=== PATIENT | female | born 1975 | race Caucasian/White ===

== ENCOUNTER 2020-02-08 11:44 | Inpatient (IN) | payer OTHER ==
[~2020-02-08] VITALS: Ht 160 cm; Wt 108.9 kg
[2020-02-08 15:58] LABS: CHLORIDE 105 mEq/L (98-107)
[2020-02-08] MEDS ORDERED: HYDRALAZINE 20MG/ML VIAL IV ONE (16:00)
[2020-02-08] MEDS ORDERED: DEXT 5%/0.45% NACL KCL 10MEQ/L 1,000 ML IV ONE (16:00)
[2020-02-08 16:02] LABS: BASOPHILS % 0.4 % (0.0-2.0); EOSINOPHILS % 0.8 % (0.0-5.0); HEMOGLOBIN. 10.1 g/dL (12.0-16.0); LYMPHOCYTES % 17.1 % (20.0-50.0); MEAN CORPUSCULAR HEMOGLOBIN 27.6 pg (28.0-32.0); MEAN CORPUSCULAR VOLUME 84.7 fL (81.0-99.0); MEAN PLATELET VOLUME 9.6 fl (7.4-10.4); NEUTROPHILS % 75.7 % (40.0-76.0); PLATELET 257 x1000/uL (130-400); RED BLOOD CELL COUNT 3.66 mill/uL (4.2-5.4); RED CELL DISTRIBUTION WIDTH 19.1 % (11.6-14.6)
[2020-02-08] MEDS ORDERED: LABETALOL 5MG/ML SYR 20 MG/4 ML SYRINGE IV ONE (19:30)
[2020-02-09] MEDS ORDERED: LIDOCAINE HCL 1% 20ML VIAL (Pyxis) INJ ONE (10:59)
[2020-02-09] MEDS ORDERED: SODIUM BICARBONATE 4% (2.4MEQ) 5ML VIAL IV ONE (10:59)
[2020-02-09] MEDS ORDERED: IOHEXOL-300 50 ML BOTTLE IV ONE (11:00)
[2020-02-09] MEDS ORDERED: LIDOCAINE HCL 2% JELLY 5ML ONE (11:43)
[2020-02-09 17:30] VITALS: BP 146/88
[2020-02-09] MEDS ORDERED: ACETAMINOPHEN 650MG SUPP PR PRN (18:00)
[2020-02-09] MEDS ORDERED: ONDANSETRON HCL 4MG/2ML INJ IV PRN (18:00)
[2020-02-09] MEDS ORDERED: CLONIDINE 0.1MG TABLET PO PRN (18:00)
[2020-02-09] MEDS ORDERED: ENOXAPARIN 30MG/0.3ML SYR SUBCUT SCH (19:00)
[2020-02-09 20:00] VITALS: BP 126/81
[2020-02-10] VITALS: BP 115/73
[2020-02-10] MEDS ORDERED: QUET25TA34 GT (03:04)
[2020-02-10] MEDS ORDERED: MULT-1195 GT (03:04)
[2020-02-10] MEDS ORDERED: ATEN-42 GT (03:04)
[2020-02-10] MEDS ORDERED: BACL-141 GT (03:04)
[2020-02-10] MEDS ORDERED: ASCO-339 GT (03:04)
[2020-02-10] MEDS ORDERED: ARGI1POW13 TP (03:04)
[2020-02-10] MEDS ORDERED: ESCI20TA47 GT (03:04)
[2020-02-10] MEDS ORDERED: XAR15 GT (03:04)
[2020-02-10 04:00] VITALS: BP 109/71
[2020-02-10 05:35] LABS: BASOPHILS % 0.4 % (0.0-2.0); EOSINOPHILS % 0.1 % (0.0-5.0); HEMATOCRIT. 31.7 % (36.0-48.0); HEMOGLOBIN. 10.2 g/dL (12.0-16.0); LYMPHOCYTES % 12.3 % (20.0-50.0); MEAN CORPUSCULAR HEMOGLOBIN 27.5 pg (28.0-32.0); MEAN CORPUSCULAR VOLUME 85.3 fL (81.0-99.0); MEAN PLATELET VOLUME 9.4 fl (7.4-10.4); MONOCYTES % 7.8 % (2.0-8.0); NEUTROPHILS % 79.4 % (40.0-76.0); PLATELET 265 x1000/uL (130-400); RED BLOOD CELL COUNT 3.72 mill/uL (4.2-5.4); RED CELL DISTRIBUTION WIDTH 19.4 % (11.6-14.6)
[2020-02-10 05:40] LABS: CHLORIDE 110 mEq/L (98-107)
[2020-02-10] MEDS ORDERED: ACETAMINOPHEN 650MG SUPP PR PRN (06:00)
[2020-02-10 08:00] VITALS: BP 121/80
[2020-02-10 12:00] VITALS: BP 128/78
[2020-02-10] MEDS ORDERED: KCL 20MEQ/100ML PREMIX 100 ML IV SCH (15:00)
[2020-02-10 16:00] VITALS: BP 129/83
[2020-02-10] MEDS: BACLOFEN 10MG TABLET GT SCH (17:00)
[2020-02-10 20:00] VITALS: BP 114/80
[2020-02-10] MEDS: QUETIAPINE FUMARATE 25MG TABLET GT SCH ×2 (21:00→22:18)
[2020-02-10] MEDS: ATENOLOL 25MG TABLET GT SCH ×2 (21:00→22:18)
[2020-02-10] MEDS: PANTOPRAZOLE SODIUM 40 MG/VIAL IV SCH (22:15)
[2020-02-11] VITALS: BP 120/71
[2020-02-11 04:00] VITALS: BP 111/71
[2020-02-11 06:50] LABS: BASOPHILS % 0.7 % (0.0-2.0); EOSINOPHILS % 0.5 % (0.0-5.0); HEMATOCRIT. 32.3 % (36.0-48.0); HEMOGLOBIN. 10.9 g/dL (12.0-16.0); LYMPHOCYTES % 19.4 % (20.0-50.0); MEAN CORPUSCULAR HEMOGLOBIN 28.8 pg (28.0-32.0); MEAN CORPUSCULAR VOLUME 85.5 fL (81.0-99.0); MEAN PLATELET VOLUME 9.5 fl (7.4-10.4); MONOCYTES % 7.7 % (2.0-8.0); NEUTROPHILS % 71.7 % (40.0-76.0); PLATELET 246 x1000/uL (130-400); RED BLOOD CELL COUNT 3.77 mill/uL (4.2-5.4); RED CELL DISTRIBUTION WIDTH 19.4 % (11.6-14.6)
[2020-02-11 06:54] LABS: CHLORIDE 112 mEq/L (98-107)
[2020-02-11 07:09] LABS: INR 1.2; PARTIAL THROMBOPLASTIN TIME 31.3 sec (23.4-31.0); PROTHROMBIN TIME 12.5 sec (9.6-11.0)
[2020-02-11 08:00] VITALS: BP 124/82
[2020-02-11] MEDS: ATENOLOL 25MG TABLET GT SCH ×2 (09:00→21:00)
[2020-02-11] MEDS ORDERED: RIVAROXABAN 15 MG TABLET GT SCH (09:00)
[2020-02-11] MEDS: BACLOFEN 10MG TABLET GT SCH ×2 (09:00→16:43)
[2020-02-11] MEDS: PANTOPRAZOLE SODIUM 40 MG/VIAL IV SCH ×2 (09:33→21:01)
[2020-02-11 12:00] VITALS: BP 116/76
[2020-02-11] MEDS ORDERED: ENOXAPARIN 120MG/0.8ML SYR SUBCUT SCH (15:00)
[2020-02-11 16:00] VITALS: BP 108/62
[2020-02-11] MEDS: DEXT 5%/0.45% NACL 1000ML 1,000 ML IV SCH ×2 (16:01→21:01)
[2020-02-11 20:00] VITALS: BP 123/78
[2020-02-11] MEDS: QUETIAPINE FUMARATE 25MG TABLET GT SCH (21:00)
[2020-02-11] MEDS: ENOXAPARIN 120MG/0.8ML SYR SUBCUT SCH (23:47)
[2020-02-12] VITALS: BP 122/74
[2020-02-12 04:00] VITALS: BP 113/71
[2020-02-12 08:00] VITALS: BP 115/74
[2020-02-12] MEDS: ATENOLOL 25MG TABLET GT SCH ×2 (09:00→20:48)
[2020-02-12] MEDS: BACLOFEN 10MG TABLET GT SCH ×2 (09:00→18:46)
[2020-02-12] MEDS: ENOXAPARIN 120MG/0.8ML SYR SUBCUT SCH ×2 (09:18→20:43)
[2020-02-12] MEDS: PANTOPRAZOLE SODIUM 40 MG/VIAL IV SCH ×2 (09:18→20:42)
[2020-02-12 12:00] VITALS: BP 117/72
[2020-02-12] MEDS ORDERED: POTASSIUM CHLORIDE INJ 40 MEQ in DEXT 5% WATER 500 ML IV ONE (12:00)
[2020-02-12] MEDS ORDERED: CEFAZOLIN 1000MG PREMIX 50 ML IV SCH (12:00)
[2020-02-12] MEDS: DEXT 5%/0.45% NACL 1000ML 1,000 ML IV SCH (12:18)
[2020-02-12] MEDS ORDERED: MIDAZOLAM HCL 5 MG/5 ML VIAL ONE (15:27)
[2020-02-12] MEDS ORDERED: FENTANYL CITRATE/PF 50MCG/ML 2ML VIAL ONE (15:28)
[2020-02-12 20:00] VITALS: BP 132/79
[2020-02-12] MEDS: QUETIAPINE FUMARATE 25MG TABLET GT SCH (20:44)
[2020-02-13] VITALS: BP 119/72
[2020-02-13] MEDS: DEXT 5%/0.45% NACL 1000ML 1,000 ML IV SCH (05:21)
[2020-02-13] MEDS: POLYVINYL ALCOHOL OPHTH DROPS 15ML BOTHEYE SCH ×5 (05:58→18:03)
[2020-02-13 06:22] LABS: BASOPHILS % 0.7 % (0.0-2.0); EOSINOPHILS % 0.9 % (0.0-5.0); HEMATOCRIT. 27.8 % (36.0-48.0); HEMOGLOBIN. 9.2 g/dL (12.0-16.0); LYMPHOCYTES % 23.5 % (20.0-50.0); MEAN CORPUSCULAR VOLUME 84.9 fL (81.0-99.0); MEAN PLATELET VOLUME 9.4 fl (7.4-10.4); MONOCYTES % 7.3 % (2.0-8.0); NEUTROPHILS % 67.6 % (40.0-76.0); PLATELET 197 x1000/uL (130-400); RED BLOOD CELL COUNT 3.28 mill/uL (4.2-5.4); RED CELL DISTRIBUTION WIDTH 18.7 % (11.6-14.6)
[2020-02-13 07:49] LABS: CHLORIDE 112 mEq/L (98-107)
[2020-02-13 08:00] VITALS: BP 136/86
[2020-02-13] MEDS: PANTOPRAZOLE SODIUM 40 MG/VIAL IV SCH ×2 (09:40→21:34)
[2020-02-13] MEDS: BACLOFEN 10MG TABLET GT SCH ×2 (09:41→18:03)
[2020-02-13] MEDS: ENOXAPARIN 120MG/0.8ML SYR SUBCUT SCH ×2 (09:41→21:35)
[2020-02-13] MEDS: ATENOLOL 25MG TABLET GT SCH ×2 (09:41→21:34)
[2020-02-13] MEDS: ASCORBIC ACID 500 MG TABLET PO SCH (09:41)
[2020-02-13] MEDS: ZINC SULFATE 220 MG ( 50 ) CAPSULE PO SCH (09:41)
[2020-02-13] MEDS ORDERED: POTASSIUM CHLORIDE 20MEQ TABLET SR PO NR (11:45)
[2020-02-13 12:00] VITALS: BP 120/74
[2020-02-13] MEDS: ACETAMINOPHEN 650MG/20.3ML UDC GT PRN (13:21)
[2020-02-13 16:00] VITALS: BP 134/70
[2020-02-13 20:00] VITALS: BP 130/74
[2020-02-13] MEDS: QUETIAPINE FUMARATE 25MG TABLET GT SCH (21:34)
[2020-02-14] VITALS: BP 110/70
[2020-02-14] MEDS: POLYVINYL ALCOHOL OPHTH DROPS 15ML BOTHEYE SCH ×5 (00:19→22:19)
[2020-02-14 04:00] VITALS: BP 129/81
[2020-02-14 08:00] VITALS: BP 109/67
[2020-02-14] MEDS: SODIUM HYPOCHLORITE 0.125% 473ML SOLUTION TOP SCH (09:00)
[2020-02-14] MEDS: ATENOLOL 25MG TABLET GT SCH ×2 (09:00→22:19)
[2020-02-14] MEDS: FAMOTIDINE 20MG/2ML VIAL IV SCH ×2 (09:17→22:15)
[2020-02-14] MEDS: ASCORBIC ACID 500 MG TABLET PO SCH (09:18)
[2020-02-14] MEDS: ZINC SULFATE 220 MG ( 50 ) CAPSULE PO SCH (09:18)
[2020-02-14] MEDS: BACLOFEN 10MG TABLET GT SCH ×2 (09:20→18:00)
[2020-02-14] MEDS: ENOXAPARIN 120MG/0.8ML SYR SUBCUT SCH ×2 (09:21→22:18)
[2020-02-14 12:00] VITALS: BP 136/65
[2020-02-14 16:00] VITALS: BP 121/65
[2020-02-14] MEDS: ACETAMINOPHEN 650MG/20.3ML UDC GT PRN (18:00)
[2020-02-14 20:00] VITALS: BP 112/70
[2020-02-14] MEDS: QUETIAPINE FUMARATE 25MG TABLET GT SCH (22:18)
[2020-02-15] VITALS: BP 114/64
[2020-02-15] MEDS: DEXT 5%/0.45% NACL 1000ML 1,000 ML IV SCH ×2 (03:46→09:46)
[2020-02-15 04:00] VITALS: BP 134/55
[2020-02-15] MEDS: POLYVINYL ALCOHOL OPHTH DROPS 15ML BOTHEYE SCH ×3 (07:11→17:22)
[2020-02-15 08:00] VITALS: BP 104/46
[2020-02-15] MEDS: ATENOLOL 25MG TABLET GT SCH ×2 (09:00→22:26)
[2020-02-15] MEDS: ENOXAPARIN 120MG/0.8ML SYR SUBCUT SCH ×2 (09:33→22:27)
[2020-02-15] MEDS: FAMOTIDINE 20MG/2ML VIAL IV SCH ×2 (09:33→22:27)
[2020-02-15] MEDS: ASCORBIC ACID 500 MG TABLET PO SCH (09:34)
[2020-02-15] MEDS: BACLOFEN 10MG TABLET GT SCH ×2 (09:34→17:22)
[2020-02-15] MEDS: ZINC SULFATE 220 MG ( 50 ) CAPSULE PO SCH (09:34)
[2020-02-15] MEDS: SODIUM HYPOCHLORITE 0.125% 473ML SOLUTION TOP SCH (09:35)
[2020-02-15 12:00] VITALS: BP 96/49
[2020-02-15 16:00] VITALS: BP 127/65
[2020-02-15 20:00] VITALS: BP 117/67
[2020-02-15 22:08] LABS: CLARITY URINE TURBID (CLEAR); COLOR URINE YELLOW (YELLOW); KETONES URINE NEGATIVE (NEGATIVE); LEUKOCYTE ESTERASE URINE 3+ (NEGATIVE); NITRITE URINE POSITIVE (NEGATIVE); OCCULT BLOOD URINE NEGATIVE (NEGATIVE); PH URINE 5.5 (4.5-8.0); PROTEIN URINE 1+ (NEGATIVE); SPECIFIC GRAVITY URINE 1.021 (1.005-1.030)
[2020-02-15] MEDS: QUETIAPINE FUMARATE 25MG TABLET GT SCH (22:26)
[2020-02-16] VITALS: BP 90/49
[2020-02-16] MEDS: POLYVINYL ALCOHOL OPHTH DROPS 15ML BOTHEYE SCH ×4 (00:12→17:54)
[2020-02-16] MEDS: DEXT 5%/0.45% NACL 1000ML 1,000 ML IV SCH ×2 (00:18→17:54)
[2020-02-16 04:00] VITALS: BP 110/65
[2020-02-16 08:00] VITALS: BP 132/78
[2020-02-16] MEDS: ENOXAPARIN 120MG/0.8ML SYR SUBCUT SCH ×2 (10:05→20:53)
[2020-02-16] MEDS: FAMOTIDINE 20MG/2ML VIAL IV SCH ×2 (10:06→20:50)
[2020-02-16] MEDS: NITROFURANTOIN 100MG M/M CAPSULE PO SCH ×2 (10:06→20:50)
[2020-02-16] MEDS: BACLOFEN 10MG TABLET GT SCH ×2 (10:06→17:54)
[2020-02-16] MEDS: ASCORBIC ACID 500 MG TABLET PO SCH (10:06)
[2020-02-16] MEDS: ZINC SULFATE 220 MG ( 50 ) CAPSULE PO SCH (10:06)
[2020-02-16] MEDS: ATENOLOL 25MG TABLET GT SCH ×2 (10:06→20:52)
[2020-02-16] MEDS: SODIUM HYPOCHLORITE 0.125% 473ML SOLUTION TOP SCH (10:13)
[2020-02-16 12:00] VITALS: BP 129/76
[2020-02-16 12:25] LABS: CHLORIDE 111 mEq/L (98-107)
[2020-02-16 16:00] VITALS: BP 139/85
[2020-02-16 20:00] VITALS: BP 127/75
[2020-02-16] MEDS: QUETIAPINE FUMARATE 25MG TABLET GT SCH (20:53)
[2020-02-17] VITALS: BP 124/73
[2020-02-17] MEDS: POLYVINYL ALCOHOL OPHTH DROPS 15ML BOTHEYE SCH ×4 (00:21→17:38)
[2020-02-17 04:00] VITALS: BP 120/75
[2020-02-17 08:00] VITALS: BP 126/74
[2020-02-17] MEDS: FAMOTIDINE 20MG/2ML VIAL IV SCH ×2 (10:00→20:51)
[2020-02-17] MEDS: ACETAMINOPHEN 650MG/20.3ML UDC GT PRN ×2 (10:00→14:19)
[2020-02-17] MEDS: ASCORBIC ACID 500 MG TABLET PO SCH (10:01)
[2020-02-17] MEDS: ATENOLOL 25MG TABLET GT SCH ×2 (10:01→20:51)
[2020-02-17] MEDS: ZINC SULFATE 220 MG ( 50 ) CAPSULE PO SCH (10:01)
[2020-02-17] MEDS: BACLOFEN 10MG TABLET GT SCH ×2 (10:01→17:38)
[2020-02-17] MEDS: NITROFURANTOIN 100MG M/M CAPSULE PO SCH (10:01)
[2020-02-17] MEDS: DEXT 5%/0.45% NACL 1000ML 1,000 ML IV SCH (10:02)
[2020-02-17] MEDS: ENOXAPARIN 120MG/0.8ML SYR SUBCUT SCH (10:02)
[2020-02-17] MEDS: SODIUM HYPOCHLORITE 0.125% 473ML SOLUTION TOP SCH (10:03)
[2020-02-17 12:00] VITALS: BP 106/68
[2020-02-17] MEDS ORDERED: PIPERACILLIN/TAZOBACTAM 2.25 G in DEXTROSE 5% WATER 50 ML IV SCH (14:00)
[2020-02-17] MEDS: PIPERACILLIN/TAZOBACTAM 3.375 G in DEXT 5% WATER 100 ML IV SCH ×2 (14:18→20:51)
[2020-02-17 16:00] VITALS: BP 124/64
[2020-02-17 19:48] LABS: BASOPHILS % 0.4 % (0.0-2.0); EOSINOPHILS % 1.3 % (0.0-5.0); LYMPHOCYTES % 25.7 % (20.0-50.0); MEAN CORPUSCULAR HEMOGLOBIN 27.6 pg (28.0-32.0); MEAN CORPUSCULAR VOLUME 83.4 fL (81.0-99.0); MEAN PLATELET VOLUME 9.2 fl (7.4-10.4); MONOCYTES % 9.8 % (2.0-8.0); NEUTROPHILS % 62.8 % (40.0-76.0); PLATELET 133 x1000/uL (130-400); RED BLOOD CELL COUNT 2.51 mill/uL (4.2-5.4); RED CELL DISTRIBUTION WIDTH 18.2 % (11.6-14.6)
[2020-02-17 20:00] VITALS: BP 134/76
[2020-02-17 20:25] LABS: HEMOGLOBIN. 6.9 g/dL (12.0-16.0)
[2020-02-17] MEDS: QUETIAPINE FUMARATE 25MG TABLET GT SCH (20:51)
[2020-02-17] MEDS: ENOXAPARIN 30MG/0.3ML SYR SUBCUT SCH (20:51)
[2020-02-18] VITALS: BP 112/86
[2020-02-18] MEDS: ACETAMINOPHEN 650MG/20.3ML UDC GT PRN (00:15)
[2020-02-18] MEDS: POLYVINYL ALCOHOL OPHTH DROPS 15ML BOTHEYE SCH ×5 (00:15→23:29)
[2020-02-18 04:00] VITALS: BP 111/68
[2020-02-18] MEDS: PIPERACILLIN/TAZOBACTAM 3.375 G in DEXT 5% WATER 100 ML IV SCH ×2 (05:18→12:29)
[2020-02-18] MEDS: BACLOFEN 10MG TABLET GT SCH ×2 (09:32→16:14)
[2020-02-18] MEDS: FAMOTIDINE 20MG/2ML VIAL IV SCH ×2 (09:33→21:20)
[2020-02-18] MEDS: ZINC SULFATE 220 MG ( 50 ) CAPSULE PO SCH (09:33)
[2020-02-18] MEDS: ASCORBIC ACID 500 MG TABLET PO SCH (09:33)
[2020-02-18] MEDS: ENOXAPARIN 30MG/0.3ML SYR SUBCUT SCH ×2 (09:33→21:41)
[2020-02-18] MEDS: ATENOLOL 25MG TABLET GT SCH ×2 (09:33→21:21)
[2020-02-18] MEDS: SODIUM HYPOCHLORITE 0.125% 473ML SOLUTION TOP SCH (09:33)
[2020-02-18] MEDS ORDERED: LEVOFLOXACIN 500MG PREMIX 100 ML IV SCH (13:00)
[2020-02-18] MEDS ORDERED: LEVOFLOXACIN 750MG PREMIX 150 ML IV SCH (14:30)
[2020-02-18 16:58] VITALS: BP 108/63
[2020-02-18 17:13] VITALS: BP 111/64
[2020-02-18 20:00] VITALS: BP 125/57
[2020-02-18] MEDS: QUETIAPINE FUMARATE 25MG TABLET GT SCH (21:22)
[2020-02-18 21:37] LABS: HEMATOCRIT 26.6 % (36.0-48.0); HEMOGLOBIN 8.8 g/dL (12.0-16.0)
[2020-02-19] VITALS: BP 131/72
[2020-02-19 04:00] VITALS: BP 130/71
[2020-02-19] MEDS: ACETAMINOPHEN 650MG/20.3ML UDC GT PRN (04:18)
[2020-02-19] MEDS: POLYVINYL ALCOHOL OPHTH DROPS 15ML BOTHEYE SCH ×3 (06:32→18:07)
[2020-02-19 08:00] VITALS: BP 132/84
[2020-02-19] MEDS: ZINC SULFATE 220 MG ( 50 ) CAPSULE PO SCH (10:02)
[2020-02-19] MEDS: FAMOTIDINE 20MG/2ML VIAL IV SCH ×2 (10:02→20:43)
[2020-02-19] MEDS: ASCORBIC ACID 500 MG TABLET PO SCH (10:02)
[2020-02-19] MEDS: ENOXAPARIN 30MG/0.3ML SYR SUBCUT SCH ×2 (10:03→21:04)
[2020-02-19] MEDS: BACLOFEN 10MG TABLET GT SCH ×2 (10:06→18:07)
[2020-02-19] MEDS: ATENOLOL 25MG TABLET GT SCH ×2 (10:07→20:43)
[2020-02-19] MEDS: SODIUM HYPOCHLORITE 0.125% 473ML SOLUTION TOP SCH (10:12)
[2020-02-19 12:00] VITALS: BP 133/77
[2020-02-19] MEDS ORDERED: GENTAMICIN 120MG PREMIX 100 ML IV SCH (14:00)
[2020-02-19 16:00] VITALS: BP 116/70
[2020-02-19 16:36] LABS: BASOPHILS % 0.5 % (0.0-2.0); EOSINOPHILS % 1.8 % (0.0-5.0); HEMATOCRIT. 25.2 % (36.0-48.0); HEMOGLOBIN. 8.1 g/dL (12.0-16.0); LYMPHOCYTES % 23.2 % (20.0-50.0); MEAN CORPUSCULAR HEMOGLOBIN 27.2 pg (28.0-32.0); MEAN CORPUSCULAR VOLUME 84.9 fL (81.0-99.0); MONOCYTES % 7.5 % (2.0-8.0); PLATELET 170 x1000/uL (130-400); RED BLOOD CELL COUNT 2.97 mill/uL (4.2-5.4); RED CELL DISTRIBUTION WIDTH 17.6 % (11.6-14.6)
[2020-02-19 16:53] LABS: CHLORIDE 109 mEq/L (98-107)
[2020-02-19 20:00] VITALS: BP 125/68
[2020-02-19] MEDS: QUETIAPINE FUMARATE 25MG TABLET GT SCH (20:44)
[2020-02-20] VITALS: BP 113/66
[2020-02-20] MEDS: POLYVINYL ALCOHOL OPHTH DROPS 15ML BOTHEYE SCH ×4 (00:04→17:29)
[2020-02-20] MEDS: GENTAMICIN 80MG PREMIX 100 ML IV SCH ×2 (01:53→14:38)
[2020-02-20 04:00] VITALS: BP 120/69
[2020-02-20 07:50] LABS: BASOPHILS % 0.5 % (0.0-2.0); EOSINOPHILS % 1.7 % (0.0-5.0); HEMATOCRIT. 26.6 % (36.0-48.0); HEMOGLOBIN. 8.7 g/dL (12.0-16.0); LYMPHOCYTES % 19.8 % (20.0-50.0); MEAN CORPUSCULAR HEMOGLOBIN 27.5 pg (28.0-32.0); MEAN CORPUSCULAR VOLUME 84.2 fL (81.0-99.0); MEAN PLATELET VOLUME 9.7 fl (7.4-10.4); PLATELET 176 x1000/uL (130-400); RED BLOOD CELL COUNT 3.16 mill/uL (4.2-5.4); RED CELL DISTRIBUTION WIDTH 17.2 % (11.6-14.6)
[2020-02-20 08:00] VITALS: BP 110/69
[2020-02-20 08:03] LABS: CHLORIDE 106 mEq/L (98-107)
[2020-02-20] MEDS: FAMOTIDINE 20MG/2ML VIAL IV SCH ×2 (09:37→22:08)
[2020-02-20] MEDS: ASCORBIC ACID 500 MG TABLET PO SCH (09:37)
[2020-02-20] MEDS: BACLOFEN 10MG TABLET GT SCH ×2 (09:37→17:29)
[2020-02-20] MEDS: ZINC SULFATE 220 MG ( 50 ) CAPSULE PO SCH (09:37)
[2020-02-20] MEDS: ATENOLOL 25MG TABLET GT SCH ×2 (09:40→21:00)
[2020-02-20] MEDS: ENOXAPARIN 30MG/0.3ML SYR SUBCUT SCH ×2 (09:40→22:09)
[2020-02-20 12:00] VITALS: BP 116/74
[2020-02-20] MEDS: SODIUM HYPOCHLORITE 0.125% 473ML SOLUTION TOP SCH (12:27)
[2020-02-20 14:34] LABS: TOTAL IRON BINDING CAPACITY 173 ug/dL (250-450)
[2020-02-20 14:52] LABS: FOLIC ACID (FOLATE) SERUM 7.5 ng/mL (>5.38)
[2020-02-20 16:00] VITALS: BP 101/62
[2020-02-20 20:00] VITALS: BP 109/73
[2020-02-20] MEDS: QUETIAPINE FUMARATE 25MG TABLET GT SCH (22:08)
[2020-02-20] MEDS: ACETAMINOPHEN 650MG/20.3ML UDC GT PRN (22:21)
[2020-02-21] VITALS: BP 119/64
[2020-02-21] MEDS: POLYVINYL ALCOHOL OPHTH DROPS 15ML BOTHEYE SCH ×4 (00:03→18:01)
[2020-02-21] MEDS: GENTAMICIN 80MG PREMIX 100 ML IV SCH (01:00)
[2020-02-21 04:00] VITALS: BP 131/72
[2020-02-21 07:01] LABS: HEMATOCRIT. 27.8 % (36.0-48.0); MEAN CORPUSCULAR HEMOGLOBIN 27.6 pg (28.0-32.0); MEAN CORPUSCULAR VOLUME 85.2 fL (81.0-99.0); MEAN PLATELET VOLUME 9.5 fl (7.4-10.4); PLATELET 192 x1000/uL (130-400); RED BLOOD CELL COUNT 3.26 mill/uL (4.2-5.4); RED CELL DISTRIBUTION WIDTH 17.9 % (11.6-14.6)
[2020-02-21 07:15] LABS: CHLORIDE 107 mEq/L (98-107)
[2020-02-21 07:24] LABS: GENTAMICIN RANDOM 4.1 ug/mL
[2020-02-21 08:00] VITALS: BP 113/78
[2020-02-21] MEDS: ACETAMINOPHEN 650MG/20.3ML UDC GT PRN ×2 (09:47→21:51)
[2020-02-21] MEDS: ENOXAPARIN 30MG/0.3ML SYR SUBCUT SCH ×2 (09:47→21:53)
[2020-02-21] MEDS: ASCORBIC ACID 500 MG TABLET PO SCH (09:47)
[2020-02-21] MEDS: BACLOFEN 10MG TABLET GT SCH ×2 (09:47→17:49)
[2020-02-21] MEDS: ZINC SULFATE 220 MG ( 50 ) CAPSULE PO SCH (09:47)
[2020-02-21] MEDS: FAMOTIDINE 20MG/2ML VIAL IV SCH ×2 (09:47→21:51)
[2020-02-21] MEDS: SODIUM HYPOCHLORITE 0.125% 473ML SOLUTION TOP SCH (09:48)
[2020-02-21] MEDS: ATENOLOL 25MG TABLET GT SCH ×2 (09:48→21:51)
[2020-02-21 12:00] VITALS: BP 121/66
[2020-02-21 16:00] VITALS: BP 129/70
[2020-02-21] MEDS ORDERED: GENTAMICIN 100MG PREMIX 50 ML IV SCH (18:00)
[2020-02-21 20:00] VITALS: BP 137/77
[2020-02-21] MEDS: QUETIAPINE FUMARATE 25MG TABLET GT SCH (21:50)
[2020-02-21 22:46] LABS: PLATELET ESTIMATE NORMAL
[2020-02-22] VITALS: BP 121/78
[2020-02-22] MEDS: POLYVINYL ALCOHOL OPHTH DROPS 15ML BOTHEYE SCH ×4 (00:30→17:23)
[2020-02-22 04:00] VITALS: BP 119/75
[2020-02-22 08:00] VITALS: BP 126/77
[2020-02-22] MEDS: ZINC SULFATE 220 MG ( 50 ) CAPSULE PO SCH (08:54)
[2020-02-22] MEDS: ATENOLOL 25MG TABLET GT SCH ×2 (08:54→21:00)
[2020-02-22] MEDS: ENOXAPARIN 30MG/0.3ML SYR SUBCUT SCH ×2 (08:54→21:45)
[2020-02-22] MEDS: BACLOFEN 10MG TABLET GT SCH ×2 (08:54→17:24)
[2020-02-22] MEDS: ASCORBIC ACID 500 MG TABLET PO SCH (08:54)
[2020-02-22] MEDS: FAMOTIDINE 20MG/2ML VIAL IV SCH ×2 (08:54→21:44)
[2020-02-22] MEDS: SODIUM HYPOCHLORITE 0.125% 473ML SOLUTION TOP SCH (08:55)
[2020-02-22 12:00] VITALS: BP 123/73
[2020-02-22] MEDS: GENTAMICIN 100MG PREMIX 50 ML IV SCH (13:59)
[2020-02-22 16:00] VITALS: BP 103/67
[2020-02-22 20:00] VITALS: BP 106/64
[2020-02-22] MEDS: QUETIAPINE FUMARATE 25MG TABLET GT SCH (21:44)
[2020-02-23] VITALS: BP 104/61
[2020-02-23] MEDS: POLYVINYL ALCOHOL OPHTH DROPS 15ML BOTHEYE SCH ×4 (00:21→17:21)
[2020-02-23 04:00] VITALS: BP 117/69
[2020-02-23 08:00] VITALS: BP 116/73
[2020-02-23] MEDS: ZINC SULFATE 220 MG ( 50 ) CAPSULE PO SCH (08:57)
[2020-02-23] MEDS: FAMOTIDINE 20MG/2ML VIAL IV SCH ×2 (08:58→20:50)
[2020-02-23] MEDS: ASCORBIC ACID 500 MG TABLET PO SCH (08:58)
[2020-02-23] MEDS: GENTAMICIN 100MG PREMIX 50 ML IV SCH (08:58)
[2020-02-23] MEDS: BACLOFEN 10MG TABLET GT SCH ×2 (08:58→17:21)
[2020-02-23] MEDS: ATENOLOL 25MG TABLET GT SCH ×2 (09:00→20:51)
[2020-02-23] MEDS: SODIUM HYPOCHLORITE 0.125% 473ML SOLUTION TOP SCH (09:02)
[2020-02-23] MEDS: ENOXAPARIN 30MG/0.3ML SYR SUBCUT SCH (09:03)
[2020-02-23 12:00] VITALS: BP 111/66
[2020-02-23 16:00] VITALS: BP 97/56
[2020-02-23 20:00] VITALS: BP 93/51
[2020-02-23] MEDS: ENOXAPARIN 40MG/0.4ML SYR SUBCUT SCH (20:50)
[2020-02-23] MEDS: ACETAMINOPHEN 650MG/20.3ML UDC GT PRN (20:50)
[2020-02-23] MEDS: QUETIAPINE FUMARATE 25MG TABLET GT SCH (20:56)
[2020-02-24] VITALS: BP 86/50
[2020-02-24] MEDS: POLYVINYL ALCOHOL OPHTH DROPS 15ML BOTHEYE SCH ×5 (00:16→23:03)
[2020-02-24] MEDS: GENTAMICIN 100MG PREMIX 50 ML IV SCH ×2 (02:08→22:38)
[2020-02-24 04:00] VITALS: BP 105/60
[2020-02-24 07:36] LABS: CHLORIDE 106 mEq/L (98-107)
[2020-02-24 07:47] LABS: GENTAMICIN RANDOM 4.1 ug/mL
[2020-02-24 08:00] VITALS: BP 126/74
[2020-02-24] MEDS: ATENOLOL 25MG TABLET GT SCH ×2 (09:00→21:00)
[2020-02-24] MEDS: BACLOFEN 10MG TABLET GT SCH ×2 (09:31→16:58)
[2020-02-24] MEDS: ZINC SULFATE 220 MG ( 50 ) CAPSULE PO SCH (09:31)
[2020-02-24] MEDS: FAMOTIDINE 20MG/2ML VIAL IV SCH ×2 (09:31→22:37)
[2020-02-24] MEDS: ASCORBIC ACID 500 MG TABLET PO SCH (09:31)
[2020-02-24] MEDS: SODIUM HYPOCHLORITE 0.125% 473ML SOLUTION TOP SCH (09:33)
[2020-02-24] MEDS: ENOXAPARIN 40MG/0.4ML SYR SUBCUT SCH ×2 (09:33→22:37)
[2020-02-24 12:00] VITALS: BP 116/76
[2020-02-24 16:00] VITALS: BP 120/66
[2020-02-24] MEDS: MIDODRINE HCL 2.5MG TABLET PO SCH (17:02)
[2020-02-24 20:00] VITALS: BP 106/67
[2020-02-24] MEDS: ACETAMINOPHEN 650MG/20.3ML UDC GT PRN (22:37)
[2020-02-24] MEDS: QUETIAPINE FUMARATE 25MG TABLET GT SCH (22:38)
[2020-02-25] VITALS: BP 122/76
[2020-02-25] MEDS: POLYVINYL ALCOHOL OPHTH DROPS 15ML BOTHEYE SCH ×3 (06:04→19:41)
[2020-02-25 08:00] VITALS: BP 135/75
[2020-02-25] MEDS: ATENOLOL 25MG TABLET GT SCH ×2 (10:08→21:40)
[2020-02-25] MEDS: MIDODRINE HCL 2.5MG TABLET PO SCH ×3 (10:08→19:41)
[2020-02-25] MEDS: ASCORBIC ACID 500 MG TABLET PO SCH (10:08)
[2020-02-25] MEDS: BACLOFEN 10MG TABLET GT SCH ×2 (10:08→19:41)
[2020-02-25] MEDS: ZINC SULFATE 220 MG ( 50 ) CAPSULE PO SCH (10:08)
[2020-02-25] MEDS: FAMOTIDINE 20MG/2ML VIAL IV SCH ×2 (10:09→21:40)
[2020-02-25] MEDS: SODIUM HYPOCHLORITE 0.125% 473ML SOLUTION TOP SCH (10:09)
[2020-02-25] MEDS: ENOXAPARIN 40MG/0.4ML SYR SUBCUT SCH ×2 (10:16→21:41)
[2020-02-25 20:00] VITALS: BP 141/83
[2020-02-25] MEDS: QUETIAPINE FUMARATE 25MG TABLET GT SCH (21:40)
[2020-02-26] MEDS: POLYVINYL ALCOHOL OPHTH DROPS 15ML BOTHEYE SCH ×5 (00:18→23:05)
[2020-02-26] MEDS ORDERED: CHOL500051 (04:50)
[2020-02-26 08:00] VITALS: BP 120/78
[2020-02-26] MEDS: ATENOLOL 25MG TABLET GT SCH ×2 (09:00→22:21)
[2020-02-26] MEDS: ASCORBIC ACID 500 MG TABLET PO SCH (10:39)
[2020-02-26] MEDS: ZINC SULFATE 220 MG ( 50 ) CAPSULE PO SCH (10:39)
[2020-02-26] MEDS: BACLOFEN 10MG TABLET GT SCH ×3 (10:39→19:44)
[2020-02-26] MEDS: MIDODRINE HCL 2.5MG TABLET PO SCH ×3 (10:40→19:43)
[2020-02-26] MEDS: ENOXAPARIN 40MG/0.4ML SYR SUBCUT SCH (10:41)
[2020-02-26] MEDS: SODIUM HYPOCHLORITE 0.125% 473ML SOLUTION TOP SCH (10:41)
[2020-02-26] MEDS: FAMOTIDINE 20MG/2ML VIAL IV SCH (10:42)
[2020-02-26 12:00] VITALS: BP 139/88
[2020-02-26] MEDS ORDERED: LOPERAMIDE 2MG/15ML UDC PO PRN (12:45)
[2020-02-26] MEDS: SODIUM CHLORIDE 0.9% 1,000 ML IV SCH (13:36)
[2020-02-26 16:00] VITALS: BP 110/71
[2020-02-26] MEDS: RIVAROXABAN 15 MG TABLET PO SCH (19:43)
[2020-02-26 20:00] VITALS: BP 116/67
[2020-02-26] MEDS: FAMOTIDINE 20MG TABLET PO SCH (22:20)
[2020-02-26] MEDS: QUETIAPINE FUMARATE 25MG TABLET GT SCH (22:20)
[2020-02-26] MEDS: GUAIFENESIN 200MG/10ML SUGAR FREE UDC GT PRN (23:01)
[2020-02-27] VITALS: BP 118/74
[2020-02-27 04:00] VITALS: BP 96/57
[2020-02-27] MEDS: SODIUM CHLORIDE 0.9% 1,000 ML IV SCH ×2 (05:05→22:35)
[2020-02-27] MEDS: POLYVINYL ALCOHOL OPHTH DROPS 15ML BOTHEYE SCH ×4 (05:05→23:27)
[2020-02-27 08:00] VITALS: BP 110/59
[2020-02-27 08:43] LABS: BASOPHILS % 0.4 % (0.0-2.0); EOSINOPHILS % 0.4 % (0.0-5.0); HEMATOCRIT. 26.1 % (36.0-48.0); HEMOGLOBIN. 8.7 g/dL (12.0-16.0); LYMPHOCYTES % 30.5 % (20.0-50.0); MEAN CORPUSCULAR HEMOGLOBIN 27.8 pg (28.0-32.0); MEAN CORPUSCULAR VOLUME 83.2 fL (81.0-99.0); MEAN PLATELET VOLUME 9.2 fl (7.4-10.4); MONOCYTES % 7.4 % (2.0-8.0); NEUTROPHILS % 61.3 % (40.0-76.0); PLATELET 247 x1000/uL (130-400); RED BLOOD CELL COUNT 3.13 mill/uL (4.2-5.4); RED CELL DISTRIBUTION WIDTH 17.3 % (11.6-14.6)
[2020-02-27 09:32] LABS: CHLORIDE 109 mEq/L (98-107)
[2020-02-27] MEDS: MIDODRINE HCL 2.5MG TABLET PO SCH ×4 (09:34→16:19)
[2020-02-27] MEDS: ASCORBIC ACID 500 MG TABLET PO SCH (09:34)
[2020-02-27] MEDS: BACLOFEN 10MG TABLET GT SCH ×3 (09:34→16:19)
[2020-02-27] MEDS: FAMOTIDINE 20MG TABLET PO SCH ×2 (09:34→22:35)
[2020-02-27] MEDS: ATENOLOL 25MG TABLET GT SCH ×2 (09:34→22:35)
[2020-02-27] MEDS: ZINC SULFATE 220 MG ( 50 ) CAPSULE PO SCH (09:34)
[2020-02-27] MEDS: SODIUM HYPOCHLORITE 0.125% 473ML SOLUTION TOP SCH (09:35)
[2020-02-27 12:00] VITALS: BP 97/65
[2020-02-27 16:00] VITALS: BP 116/63
[2020-02-27] MEDS: RIVAROXABAN 15 MG TABLET PO SCH (16:19)
[2020-02-27 20:00] VITALS: BP 131/72
[2020-02-27] MEDS: QUETIAPINE FUMARATE 25MG TABLET GT SCH (22:35)
[2020-02-27] MEDS: GUAIFENESIN 200MG/10ML SUGAR FREE UDC GT PRN (23:26)
[2020-02-28] MEDS: POLYVINYL ALCOHOL OPHTH DROPS 15ML BOTHEYE SCH ×3 (05:43→18:05)
[2020-02-28 08:00] VITALS: BP 116/74
[2020-02-28] MEDS: FAMOTIDINE 20MG TABLET PO SCH ×2 (10:39→22:59)
[2020-02-28] MEDS: MIDODRINE HCL 2.5MG TABLET PO SCH ×3 (10:40→18:08)
[2020-02-28] MEDS: ATENOLOL 25MG TABLET GT SCH ×2 (10:40→21:00)
[2020-02-28] MEDS: BACLOFEN 10MG TABLET GT SCH ×3 (10:40→18:05)
[2020-02-28] MEDS: SODIUM HYPOCHLORITE 0.125% 473ML SOLUTION TOP SCH (10:49)
[2020-02-28 12:00] VITALS: BP 126/68
[2020-02-28] MEDS: GUAIFENESIN 200MG/10ML SUGAR FREE UDC GT PRN (14:05)
[2020-02-28] MEDS: SODIUM CHLORIDE 0.9% 1,000 ML IV SCH (15:00)
[2020-02-28 16:00] VITALS: BP 125/54
[2020-02-28] MEDS: RIVAROXABAN 15 MG TABLET PO SCH (18:08)
[2020-02-28 20:00] VITALS: BP 136/80
[2020-02-28] MEDS: QUETIAPINE FUMARATE 25MG TABLET GT SCH (23:00)
[2020-02-29] VITALS: BP 124/67
[2020-02-29] MEDS: POLYVINYL ALCOHOL OPHTH DROPS 15ML BOTHEYE SCH ×4 (00:30→17:53)
[2020-02-29] MEDS: ATENOLOL 25MG TABLET GT SCH ×3 (03:15→22:06)
[2020-02-29 04:00] VITALS: BP 133/54
[2020-02-29 08:00] VITALS: BP 97/54
[2020-02-29] MEDS: FAMOTIDINE 20MG TABLET PO SCH ×2 (09:00→22:05)
[2020-02-29] MEDS: MIDODRINE HCL 2.5MG TABLET PO SCH ×3 (09:54→17:53)
[2020-02-29] MEDS: SODIUM HYPOCHLORITE 0.125% 473ML SOLUTION TOP SCH (09:55)
[2020-02-29] MEDS: BACLOFEN 10MG TABLET GT SCH ×3 (09:57→17:53)
[2020-02-29] MEDS: SODIUM CHLORIDE 0.9% 1,000 ML IV SCH (09:59)
[2020-02-29 16:00] VITALS: BP 106/52
[2020-02-29] MEDS: RIVAROXABAN 15 MG TABLET PO SCH (17:53)
[2020-02-29 20:00] VITALS: BP 129/59
[2020-02-29] MEDS: QUETIAPINE FUMARATE 25MG TABLET GT SCH (22:05)
[2020-02-29] MEDS: GUAIFENESIN 200MG/10ML SUGAR FREE UDC GT PRN (22:05)
[2020-03-01] VITALS: BP 118/76
[2020-03-01] MEDS: POLYVINYL ALCOHOL OPHTH DROPS 15ML BOTHEYE SCH ×4 (01:11→17:31)
[2020-03-01] MEDS: SODIUM CHLORIDE 0.9% 1,000 ML IV SCH ×2 (01:25→17:35)
[2020-03-01 04:00] VITALS: BP 120/83
[2020-03-01 08:00] VITALS: BP 123/66
[2020-03-01] MEDS: ATENOLOL 25MG TABLET GT SCH ×2 (10:55→20:55)
[2020-03-01] MEDS: FAMOTIDINE 20MG TABLET PO SCH ×2 (10:55→20:55)
[2020-03-01] MEDS: BACLOFEN 10MG TABLET GT SCH ×3 (10:55→17:32)
[2020-03-01] MEDS: MIDODRINE HCL 2.5MG TABLET PO SCH ×3 (10:55→17:32)
[2020-03-01] MEDS: SODIUM HYPOCHLORITE 0.125% 473ML SOLUTION TOP SCH (10:56)
[2020-03-01 12:00] VITALS: BP 139/72
[2020-03-01 16:00] VITALS: BP 145/77
[2020-03-01] MEDS: RIVAROXABAN 15 MG TABLET PO SCH (17:32)
[2020-03-01 20:00] VITALS: BP 125/73
[2020-03-01] MEDS: QUETIAPINE FUMARATE 25MG TABLET GT SCH (20:55)
[2020-03-02] VITALS: BP 108/66
[2020-03-02] MEDS: POLYVINYL ALCOHOL OPHTH DROPS 15ML BOTHEYE SCH ×5 (00:28→23:21)
[2020-03-02 04:00] VITALS: BP 155/73
[2020-03-02 08:00] VITALS: BP 168/88
[2020-03-02] MEDS: FAMOTIDINE 20MG TABLET PO SCH ×2 (09:00→22:20)
[2020-03-02] MEDS: BACLOFEN 10MG TABLET GT SCH ×3 (09:58→18:09)
[2020-03-02] MEDS: MIDODRINE HCL 2.5MG TABLET PO SCH ×3 (09:58→18:09)
[2020-03-02] MEDS: ATENOLOL 25MG TABLET GT SCH ×2 (09:58→22:21)
[2020-03-02] MEDS: SODIUM HYPOCHLORITE 0.125% 473ML SOLUTION TOP SCH (10:00)
[2020-03-02] MEDS: SODIUM CHLORIDE 0.9% 1,000 ML IV SCH (10:01)
[2020-03-02 12:00] VITALS: BP 156/80
[2020-03-02] MEDS: RIVAROXABAN 15 MG TABLET PO SCH (18:02)
[2020-03-02 20:00] VITALS: BP 128/67
[2020-03-02] MEDS: QUETIAPINE FUMARATE 25MG TABLET GT SCH (22:22)
[2020-03-03] VITALS: BP 114/66
[2020-03-03] MEDS: SODIUM CHLORIDE 0.9% 1,000 ML IV SCH (02:20)
[2020-03-03 04:00] VITALS: BP 129/67
[2020-03-03] MEDS: POLYVINYL ALCOHOL OPHTH DROPS 15ML BOTHEYE SCH ×4 (05:54→23:56)
[2020-03-03 08:00] VITALS: BP 156/71
[2020-03-03] MEDS: FAMOTIDINE 20MG TABLET PO SCH ×2 (09:00→22:08)
[2020-03-03] MEDS: BACLOFEN 10MG TABLET GT SCH ×3 (09:48→17:45)
[2020-03-03] MEDS: ATENOLOL 25MG TABLET GT SCH ×2 (09:48→22:08)
[2020-03-03] MEDS: MIDODRINE HCL 2.5MG TABLET PO SCH ×3 (09:48→17:45)
[2020-03-03 12:00] VITALS: BP 153/72
[2020-03-03] MEDS: SODIUM HYPOCHLORITE 0.125% 473ML SOLUTION TOP SCH (13:46)
[2020-03-03 16:00] VITALS: BP 149/80
[2020-03-03] MEDS: RIVAROXABAN 15 MG TABLET PO SCH (17:45)
[2020-03-03 20:00] VITALS: BP 158/76
[2020-03-03] MEDS: QUETIAPINE FUMARATE 25MG TABLET GT SCH (22:08)
[2020-03-04] VITALS: BP 137/70
[2020-03-04 04:00] VITALS: BP 129/78
[2020-03-04] MEDS: POLYVINYL ALCOHOL OPHTH DROPS 15ML BOTHEYE SCH ×4 (05:35→17:55)
[2020-03-04] MEDS: FAMOTIDINE 20MG TABLET PO SCH ×2 (09:23→21:48)
[2020-03-04] MEDS: MIDODRINE HCL 2.5MG TABLET PO SCH ×3 (09:24→17:54)
[2020-03-04] MEDS: ATENOLOL 25MG TABLET GT SCH ×2 (09:24→21:49)
[2020-03-04] MEDS: BACLOFEN 10MG TABLET GT SCH ×3 (09:24→17:54)
[2020-03-04] MEDS: SODIUM HYPOCHLORITE 0.125% 473ML SOLUTION TOP SCH (09:25)
[2020-03-04] MEDS: SODIUM CHLORIDE 0.9% 1,000 ML IV SCH (11:40)
[2020-03-04 11:47] LABS: BASOPHILS % 0.6 % (0.0-2.0); EOSINOPHILS % 1.2 % (0.0-5.0); HEMATOCRIT. 29.2 % (36.0-48.0); HEMOGLOBIN. 9.5 g/dL (12.0-16.0); LYMPHOCYTES % 25.7 % (20.0-50.0); MEAN CORPUSCULAR HEMOGLOBIN 26.3 pg (28.0-32.0); MEAN CORPUSCULAR VOLUME 80.9 fL (81.0-99.0); MEAN PLATELET VOLUME 8.5 fl (7.4-10.4); MONOCYTES % 9.4 % (2.0-8.0); NEUTROPHILS % 63.1 % (40.0-76.0); PLATELET 323 x1000/uL (130-400); RED BLOOD CELL COUNT 3.61 mill/uL (4.2-5.4)
[2020-03-04 16:00] VITALS: BP 121/74
[2020-03-04] MEDS: RIVAROXABAN 15 MG TABLET PO SCH (17:54)
[2020-03-04 20:00] VITALS: BP 136/76
[2020-03-04] MEDS: QUETIAPINE FUMARATE 25MG TABLET GT SCH (21:48)
[2020-03-05] VITALS: BP 130/72
[2020-03-05] MEDS: POLYVINYL ALCOHOL OPHTH DROPS 15ML BOTHEYE SCH ×4 (00:40→17:53)
[2020-03-05 04:00] VITALS: BP 121/79
[2020-03-05] MEDS: FAMOTIDINE 20MG TABLET PO SCH ×2 (09:08→20:24)
[2020-03-05] MEDS: ATENOLOL 25MG TABLET GT SCH ×2 (09:08→20:24)
[2020-03-05] MEDS: BACLOFEN 10MG TABLET GT SCH ×3 (09:08→17:54)
[2020-03-05] MEDS: MIDODRINE HCL 2.5MG TABLET PO SCH ×3 (09:09→17:53)
[2020-03-05] MEDS: SODIUM HYPOCHLORITE 0.125% 473ML SOLUTION TOP SCH (09:09)
[2020-03-05 16:00] VITALS: BP 124/82
[2020-03-05] MEDS: RIVAROXABAN 15 MG TABLET PO SCH (17:54)
[2020-03-05 20:00] VITALS: BP 152/75
[2020-03-05] MEDS: QUETIAPINE FUMARATE 25MG TABLET GT SCH (20:24)
[2020-03-05] MEDS: SODIUM CHLORIDE 0.9% 1,000 ML IV SCH (20:59)
[2020-03-06] VITALS (7 sets, daily range): BP systolic 127–146; BP diastolic 71–88
[2020-03-06] MEDS: POLYVINYL ALCOHOL OPHTH DROPS 15ML BOTHEYE SCH ×4 (01:07→17:14)
[2020-03-06] MEDS: SODIUM HYPOCHLORITE 0.125% 473ML SOLUTION TOP SCH (09:00)
[2020-03-06] MEDS: MIDODRINE HCL 2.5MG TABLET PO SCH ×3 (09:26→17:00)
[2020-03-06] MEDS: ATENOLOL 25MG TABLET GT SCH ×2 (09:26→20:59)
[2020-03-06] MEDS: BACLOFEN 10MG TABLET GT SCH ×3 (09:26→17:14)
[2020-03-06] MEDS: FAMOTIDINE 20MG TABLET PO SCH ×2 (09:26→20:56)
[2020-03-06] MEDS: SODIUM CHLORIDE 0.9% 1,000 ML IV SCH (13:00)
[2020-03-06] MEDS: ACETAMINOPHEN 650MG/20.3ML UDC GT PRN (17:32)
[2020-03-06] MEDS: RIVAROXABAN 15 MG TABLET PO SCH (17:32)
[2020-03-06] MEDS: QUETIAPINE FUMARATE 25MG TABLET GT SCH (20:56)
[2020-03-07] VITALS: BP 119/71
[2020-03-07 04:00] VITALS: BP 111/61
[2020-03-07 08:00] VITALS: BP 131/70
[2020-03-07] MEDS: ATENOLOL 25MG TABLET GT SCH ×2 (10:21→21:00)
[2020-03-07] MEDS: BACLOFEN 10MG TABLET GT SCH ×3 (10:21→17:29)
[2020-03-07] MEDS: FAMOTIDINE 20MG TABLET PO SCH ×2 (10:21→20:42)
[2020-03-07] MEDS: MIDODRINE HCL 2.5MG TABLET PO SCH ×3 (10:21→17:00)
[2020-03-07] MEDS: SODIUM HYPOCHLORITE 0.125% 473ML SOLUTION TOP SCH (10:22)
[2020-03-07 12:00] VITALS: BP 106/78
[2020-03-07] MEDS: POLYVINYL ALCOHOL OPHTH DROPS 15ML BOTHEYE SCH ×3 (13:30→17:31)
[2020-03-07] MEDS: SODIUM CHLORIDE 0.9% 1,000 ML IV SCH ×2 (13:35→23:00)
[2020-03-07 16:00] VITALS: BP 118/78
[2020-03-07] MEDS: RIVAROXABAN 15 MG TABLET PO SCH (17:30)
[2020-03-07 20:00] VITALS: BP 129/66
[2020-03-07] MEDS: QUETIAPINE FUMARATE 25MG TABLET GT SCH (20:43)
[2020-03-08] VITALS: BP 129/71
[2020-03-08] MEDS: POLYVINYL ALCOHOL OPHTH DROPS 15ML BOTHEYE SCH ×3 (00:09→12:00)
[2020-03-08 04:00] VITALS: BP 120/75
[2020-03-08 06:11] LABS: HEMATOCRIT 26.8 % (36.0-48.0); HEMOGLOBIN 8.8 g/dL (12.0-16.0); MEAN CORPUSCULAR HEMOGLOBIN 26.4 pg (28.0-32.0); MEAN CORPUSCULAR VOLUME 80.9 fL (81.0-99.0); PLATELET 272 x1000/uL (130-400); RED BLOOD CELL COUNT 3.31 mill/uL (4.2-5.4); RED CELL DISTRIBUTION WIDTH 18.3 % (11.6-14.6)
[2020-03-08 06:37] LABS: CHLORIDE 111 mEq/L (98-107)
[2020-03-08 08:00] VITALS: BP 143/72
[2020-03-08] MEDS: MIDODRINE HCL 2.5MG TABLET PO SCH ×2 (10:25→12:58)
[2020-03-08] MEDS: BACLOFEN 10MG TABLET GT SCH ×2 (10:25→12:58)
[2020-03-08] MEDS: FAMOTIDINE 20MG TABLET PO SCH (10:26)
[2020-03-08] MEDS: ATENOLOL 25MG TABLET GT SCH (10:26)
[2020-03-08] MEDS: SODIUM HYPOCHLORITE 0.125% 473ML SOLUTION TOP SCH (10:26)
[2020-03-08 12:00] VITALS: BP 141/71
[2020-03-08 15:38] VITALS: BP 141/71
== END 2020-03-08 16:30 | disposition home health service (06) | DRG 853 ==
LOC: ER 11:54 → EDBEDREQSVC 02-09 13:46 → EDBEDREQ 02-09 13:46 → 6EST 02-09 13:57 → EDBEDREQSVC 02-09 13:58 → EDBEDREQTM 02-09 14:28 → EDBEDREQ 02-09 14:28 → ENRESERV 02-09 16:09
PROVIDERS: ADMIT Hospitalist; ATTEND Hospitalist
PROC: 0KBP0ZZ Excision of Left Hip Muscle, Open Approach (ICD-10-PCS; principal; 2020-02-10)
PROC: 0KBN0ZZ Excision of Right Hip Muscle, Open Approach (ICD-10-PCS; 2020-02-10)
PROC: 0DH63UZ Insertion of Feeding Device into Stomach, Percutaneous Approach (ICD-10-PCS; 2020-02-10)
PROC: 30233N1 Transfusion of Nonautologous Red Blood Cells into Peripheral Vein, Percutaneous Approach (ICD-10-PCS; 2020-02-18)
DX: A41.9 Sepsis, unspecified organism (principal); L89.154 Pressure ulcer of sacral region, stage 4; E43 Unspecified severe protein-calorie malnutrition; K94.23 Gastrostomy malfunction; N39.0 Urinary tract infection, site not specified; Z68.41 Body mass index [BMI] 40.0-44.9, adult; D63.8 Anemia in other chronic diseases classified elsewhere; D72.829 Elevated white blood cell count, unspecified; E87.6 Hypokalemia; L85.3 Xerosis cutis; R13.12 Dysphagia, oropharyngeal phase; I10 Essential (primary) hypertension; B96.5 Pseudomonas (aeruginosa) (mallei) (pseudomallei) as the cause of diseases classified elsewhere; D50.9 Iron deficiency anemia, unspecified; R62.50 Unspecified lack of expected normal physiological development in childhood; Z20.822 Contact with and (suspected) exposure to COVID-19; R74.01 Elevation of levels of liver transaminase levels; Z86.74 Personal history of sudden cardiac arrest; Z79.899 Other long term (current) drug therapy
CPT/HCPCS: 36415; 49450; 80048; 80053; 80170; 81003; 82040; 82270; 82607; 82728; 82746; 83540; 83550; 84134; 85014; 85018; 85025; 85027; 86850; 86900; 86920; 87045; 87077; 87186; 87426; 87449; 89055; 92610; 93005; 93970; 99285; C1725; C1769; C1893; C9113; J0360; J0690; J1580; J1650; J1956; J2250; J2543; J3010; J3480; J3490; J7030; J7040; J7060; P9016; Q9967; A4315

== ENCOUNTER 2020-07-26 17:25 | Emergency (ER) | payer MEDICAID ==
[~2020-07-26] VITALS: Ht 157.5 cm; Wt 82.0 kg
[~2020-07-26 17:25] MED LIST: ARGI1POW13 TP; ASCO-339 GT; ATEN-42 GT; BACL-141 GT; CHOL500051; ESCI20TA37 GT; MULT-1195 GT; QUET25TA34 GT; XAR15 GT
[2020-07-26] MEDS ORDERED: ONDANSETRON HCL 4MG/2ML INJ IV STA (18:04)
[2020-07-26] MEDS ORDERED: PANTOPRAZOLE SODIUM 40 MG/VIAL IV ONE (18:15)
[2020-07-26 18:40] LABS: BASOPHILS % 0.4 % (0.0-2.0); EOSINOPHILS % 1.1 % (0.0-5.0); HEMATOCRIT. 39.5 % (36.0-48.0); HEMOGLOBIN. 13.2 g/dL (12.0-16.0); LYMPHOCYTES % 15.1 % (20.0-50.0); MEAN CORPUSCULAR VOLUME 80.6 fL (81.0-99.0); MEAN PLATELET VOLUME 9.4 fl (7.4-10.4); MONOCYTES % 4.8 % (2.0-8.0); NEUTROPHILS % 78.6 % (40.0-76.0); PLATELET 166 x1000/uL (130-400); RED CELL DISTRIBUTION WIDTH 17.8 % (11.6-14.6)
[2020-07-26 18:45] LABS: CLARITY URINE CLEAR (CLEAR); COLOR URINE YELLOW (YELLOW); KETONES URINE NEGATIVE (NEGATIVE); LEUKOCYTE ESTERASE URINE 3+ (NEGATIVE); NITRITE URINE POSITIVE (NEGATIVE); OCCULT BLOOD URINE TRACE (NEGATIVE); PROTEIN URINE NEGATIVE (NEGATIVE); SPECIFIC GRAVITY URINE 1.007 (1.005-1.030); UROBILINOGEN URINE 0.2 E.U./dL (0.2-1.0)
[2020-07-26 18:48] LABS: CHLORIDE 109 mEq/L (98-107)
[2020-07-26 18:58] LABS: INR 1.1; PROTHROMBIN TIME 11.6 sec (9.6-11.0)
[2020-07-26] MEDS ORDERED: CEFTRIAXONE 1 G PREMIX 50 ML IV ONE (19:15)
[2020-07-26] MEDS ORDERED: IOHEXOL-300 100 ML BOTTLE ONE (22:59)
[2020-07-27 02:55] VITALS: BP 135/71
== END 2020-07-27 04:03 | disposition short-term general hospital (02) ==
LOC: ER 17:25 → CANRESERV 07-27 03:06 → ENRESERV 07-27 03:06 → CANBEDREQ 07-27 03:18 → ER 07-27 04:03
DX: N39.0 Urinary tract infection, site not specified (principal); K92.0 Hematemesis; I10 Essential (primary) hypertension; I46.9 Cardiac arrest, cause unspecified; Z79.899 Other long term (current) drug therapy
CPT/HCPCS: 36415; 70450; 71045; 74177; 80053; 81003; 81025; 83690; 85025; 85610; 87040; 87077; 87086; 87186; 96365; 96375; 99285; C9113; J0696; J2405; Q9967